=== PATIENT | male | born 1970 | race Caucasian/White ===

== ENCOUNTER → 2021-04-04 09:06 | Outpatient (BNVA) | payer BC, SELFPAY | PROVIDERS: PCP Nurse Practitioner; Visit Provider Nurse Practitioner | DX: E11.65 Type 2 diabetes mellitus with hyperglycemia (principal); I10 Essential (primary) hypertension | CPT/HCPCS: 80053; 83036 ==

== ENCOUNTER → 2022-01-01 08:41 | Outpatient (BNVA) | payer BC, SELFPAY | PROVIDERS: PCP Nurse Practitioner; Visit Provider Nurse Practitioner | DX: E11.65 Type 2 diabetes mellitus with hyperglycemia (principal) | CPT/HCPCS: 80053; 80061; 82043; 83036 ==

== ENCOUNTER → 2022-06-24 09:46 | Outpatient (BNVA) | payer BC, SELFPAY | PROVIDERS: PCP Nurse Practitioner; Visit Provider Nurse Practitioner | DX: E11.65 Type 2 diabetes mellitus with hyperglycemia (principal) | CPT/HCPCS: 80053; 80061; 82043; 83036 ==

== ENCOUNTER → 2023-06-30 09:05 | Outpatient (BNVA) | payer BC, SELFPAY | PROVIDERS: PCP Nurse Practitioner; Visit Provider Nurse Practitioner | DX: E11.65 Type 2 diabetes mellitus with hyperglycemia; Z12.5 Encounter for screening for malignant neoplasm of prostate | CPT/HCPCS: 80053; 82043; 83036; G0103 ==

== ENCOUNTER → 2023-11-05 14:05 | Outpatient (BNVA) | payer BC, SELFPAY | PROVIDERS: PCP Nurse Practitioner; Visit Provider Nurse Practitioner | DX: E11.9 Type 2 diabetes mellitus without complications (principal) | CPT/HCPCS: 80053; 80061; 81000; 83036 ==

== ENCOUNTER 2023-12-01 13:27 | Outpatient (CLI) | payer BC, SELFPAY ==
--- NOTE | 2023-12-01 13:30 | CT_ITS ---
WS: [id number] CT ABDOMEN AND PELVIS WITH CONTRAST HISTORY: Z85.528 - Personal history of other malignant neoplasm LEFT kidney. TECHNIQUE: Imaging performed of the abdomen and pelvis with IV contrast. Single phase imaging of the abdomen. Coronal and sagittal reformats are submitted. All CT scans at [facility] use at [address] one of these dose optimization techniques: automated exposure control; mA and/or kV adjustment per patient size (includes targeted exams where dose is matched to clinical indication); or iterative re construction. IV CONTRAST: Omnipaque 350; 100 mL IV. Oral contrast: Yes. DLP: 611.22 mGy.cm COMPARISON: None available. Lower thorax: Lung bases are clear. Heart is normal size. No hiatal hernia. Liver/biliary system: Normal size liver. There are a few scattered areas of decreased enhancement and attenuation within the liver. These are near the camille hepatis and gallbladder fossa. Distribution s uggests these are areas of focal fatty sparing. No prior studies for comparison. No bile duct dilatat ion. Gallbladder: Prior cholecystectomy. Pancreas: Normal size pancreas and pancreatic duct. No adjacent inflammation. Spleen: Normal size spleen. No mass or infarct. Adrenal glands: Normal. Right kidney: Normal. Left kidney: Small caliber LEFT kidney. Postsurgical changes along with cortical thinning and volume loss in the mid lateral kidney. There is a partially calcified mass measuring 2.8 x 1.3 cm. This is p robably a postsurgical calcification and may be from prior seroma or hemorrhage. There is no enhancin g solid mass identified. Aorta: Mild atherosclerosis with no aneurysm. Lymphadenopathy: None. Free fluid: None. GI tract: Prior gastric band procedure. No small bowel obstruction. There is marked fecal retention a nd constipation. Normal appendix. Abdominal wall: Lap band reservoir noted in the midline of the abdominal wall. Small fat-containing u mbilical hernia. Pelvis: No free fluid or adenopathy within the pelvis. Small inguinal lymph nodes measure up to 11 mm . No adenopathy. Very mild but diffuse bladder wall thickening may be due to an outlet obstruction. P rostate is slightly enlarged and heterogeneous. Bones: Unremarkable. CT/CT abdomen pelvis w con* [id number] IMPRESSION: 1. No prior cross-sectional imaging studies for comparison. 2. Partial nephrectomy LEFT kidney. There is a chronic appearing calcified mas s along the lateral kidney measuring 2.8 x 1.3 cm. Suspect this is a residual p ostoperative hematoma or seroma. 3. No new solid mass. 4. No retroperitoneal adenopathy. 5. Status post gastric banding. 6. Focal fatty sparing involving the central liver. 7. Prior cholecystectomy. 8. Constipation.
[2023-12-01] MEDS: iohexol 350 mg/mL 500 mL Btl (per mL) IV (14:33)
[2023-12-01] MEDS: iohexol 350 mg/mL 500 mL Btl (per mL) PO (14:33)
== END 2023-12-01 13:28 | disposition home or self-care (01) ==
LOC: RAD 13:28
PROVIDERS: PCP Nurse Practitioner; Visit Provider Nurse Practitioner
DX: N20.0 Calculus of kidney (principal); Z85.528 Personal history of other malignant neoplasm of kidney; R93.2 Abnormal findings on diagnostic imaging of liver and biliary tract; Z90.49 Acquired absence of other specified parts of digestive tract; Z90.5 Acquired absence of kidney; Z98.84 Bariatric surgery status
CPT/HCPCS: 74177; 80053; 80061; 81000; 83036

== ENCOUNTER → 2024-02-09 13:19 | Outpatient (BNVA) | payer BC, SELFPAY | PROVIDERS: PCP Nurse Practitioner; Visit Provider Nurse Practitioner | DX: E11.9 Type 2 diabetes mellitus without complications | CPT/HCPCS: 80053; 83036 ==

== ENCOUNTER → 2024-06-08 08:39 | Outpatient (BNVA) | payer BC, SELFPAY | PROVIDERS: PCP Nurse Practitioner; Visit Provider Nurse Practitioner | DX: E11.65 Type 2 diabetes mellitus with hyperglycemia (principal) | CPT/HCPCS: 80053; 80061; 83036 ==

== ENCOUNTER → 2024-12-13 13:23 | Outpatient (BNVA) | payer BC, SELFPAY | PROVIDERS: PCP Nurse Practitioner; Visit Provider Nurse Practitioner | DX: E11.65 Type 2 diabetes mellitus with hyperglycemia (principal); Z12.5 Encounter for screening for malignant neoplasm of prostate; E11.9 Type 2 diabetes mellitus without complications; Z85.528 Personal history of other malignant neoplasm of kidney | CPT/HCPCS: 80053; 80061; 82043; 82306; 83036; 85025; G0103 ==